=== PATIENT | female | born 1945 ===

== ENCOUNTER 2018-01-29 09:21 | Outpatient (CLI) | payer OTHER ==
[~2018-01-29 09:21] MED LIST: CATAFLAM50 MG PO; CIPRO500 MG PO; PERCOCET 5/321 UDTAB PO; RECTICARE30 GM TP
== END 2018-01-29 09:25 | disposition home or self-care (01) ==
LOC: SONOGRAMA 09:21
DX: R19.09 Other intra-abdominal and pelvic swelling, mass and lump (principal)

== ENCOUNTER 2022-01-17 05:40 | Day surgery (SDC) | payer OTHER ==
[~2022-01-17 05:40] MED LIST changes: +CANDESARTAN CILE8 MG PO; +JANUMET XR 50-1 EACH PO; +SYNTHROID50 MCG PO
[2022-01-17] MEDS ORDERED: ULTRACET PO (10:33)
== END 2022-01-17 11:36 | disposition home or self-care (01) ==
LOC: CIR.AMB 05:40
PROVIDERS: ATTEND Surgery
DX: C21.1 Malignant neoplasm of anal canal (principal); I10 Essential (primary) hypertension; E78.5 Hyperlipidemia, unspecified; E03.9 Hypothyroidism, unspecified; E11.9 Type 2 diabetes mellitus without complications; G43.909 Migraine, unspecified, not intractable, without status migrainosus; M81.0 Age-related osteoporosis without current pathological fracture; Z92.21 Personal history of antineoplastic chemotherapy; Z45.2 Encounter for adjustment and management of vascular access device; Z79.84 Long term (current) use of oral hypoglycemic drugs; Z20.822 Contact with and (suspected) exposure to COVID-19